=== PATIENT | female | born 2000 | race American Indian/Alaskan Native ===

== ENCOUNTER 2020-12-23 15:39 | Emergency (ER) | payer OTHER, MEDICAID ==
[2020-12-23] MEDS ORDERED: KETOROLAC 30 MG/1 ML INJ IV ONE (17:20)
[2020-12-23] MEDS ORDERED: MORPHINE 4 MG/1 ML INJ IV ONE ×3 (17:20→22:05)
[2020-12-23] MEDS ORDERED: diphenhydrAMINE 50 MG/ML VIAL IV ONE ×2 (17:20→20:40)
[2020-12-23] MEDS ORDERED: ONDANSETRON 4 MG/2 ML INJ IV ONE (17:20)
--- NOTE | 2020-12-23 17:21 | Emergency Department Report ---
ED Chest Pain HPI - General Chief Complaint: Sickle Cell Crisis Stated Complaint: SICKLE CELL PAIN Time Seen by Provider: 12/23/20 17:06 Source: patient Mode of arrival: Ambulatory Limitations: No Limitations - History of Present Illness Initial Comments: 20-year-old female with a past medical history of sickle cell SC presents to the hospital planing of pain related to sickle cell disease for the past 3 to 4 days. Patient complains of constant moderate to severe sharp sternal chest pain that is worse with movement and palpation. She complains of a dry cough. She denies shortness of breath, fever, loss of sense of taste and smell, history of PE or DVT. Last Covid test was negative 2 weeks ago. Patient does express a history of acute chest syndrome. Patient also complains of bilateral leg pain without swelling. Patient takes morphine ER 15 mg and oxycodone 10 mg for pain with last dose prior to arrival. Patient's electrotype molder is affiliated with [facility]. This is patient's first visit here. [place] prescription monitoring site reviewed and patient failed a 1 month supply of morphine ER 15 mg on December 10 and a 15-day supply of oxycodone 10 mg. Prescribing doctor is Michael Gr and she receives regular refills of these medications. Patient does not have a port. Patient states on average she has 2 crises a month requiring her to go to the hospital and is typically seen at [facility]. - Related Data Allergies Allergy/AdvReac Type Severity Reaction Status Date / Time hydromorphone [From Dilaudid] Allergy Hives Verified 12/23/20 15:48 Pork/Porcine Containing Allergy Anaphylaxis Verified 12/23/20 15:48 Products Heart Score - HEART Score History: Slightly suspicious EKG: Normal Age: < 45 Risk factors: No known risk factors Troponin: < normal limit HEART Score: 0 ED Review of Systems ROS: Stated complaint: SICKLE CELL PAIN Other details as noted in HPI Comment: All other systems reviewed and negative Other: General: No acute distress Head: Atraumatic Eyes: normal appearance ENT: Moist mucous membranes Neck: Normal appearance, no midline tenderness Chest: Clear to auscultation bilaterally, reproducible sternal chest wall tender CV: Regular rate and rhythm Abdomen: Soft, normal bowel sounds, nontender, nondistended, no rebound or guarding Back: Normal inspection Extremity: Normal inspection, full range of motion, no calf tenderness or leg edema Neuro: Alert O x 3, no facial asymmetry, speech clear, no gross motor sensory deficit Psych: Appropriate behavior Skin: No rash ED Past Medical Hx - Past Medical History Previous Medical History?: Yes Hx Sickle Cell Disease: Yes - Surgical History Past Surgical History?: No ED Physical Exam - General Limitations: No Limitations - Other Other exam information: General: No acute distress Head: Atraumatic Eyes: normal appearance ENT: Moist mucous membranes Neck: Normal appearance, no midline tenderness Chest: Clear to auscultation bilaterally, reproducible sternal chest wall tenderness CV: Regular rate and rhythm Abdomen: Soft, normal bowel sounds, nontender, nondistended, no rebound or guar ding Back: Normal inspection Extremity: Normal inspection, full range of motion Neuro: Alert O x 3, no facial asymmetry, speech clear, no gross motor sensory deficit Psych: Appropriate behavior Skin: No rash ED Course Vital Signs 12/23/20 12/23/20 12/23/20 15:49 17:45 19:20 Temperature 99.5 F 98.3 F Pulse Rate 118 H 89 Respiratory 16 16 18 Rate Blood Pressure 126/83 Blood Pressure 101/57 [Left] O2 Sat by Pulse 97 96 Oximetry 12/23/20 12/23/20 12/23/20 19:22 19:31 19:45 Temperature Pulse Rate 97 H 80 76 Respiratory 16 18 16 Rate Blood Pressure 101/57 101/57 101/57 Blood Pressure [Left] O2 Sat by Pulse 100 100 97 Oximetry 12/23/20 12/23/20 12/23/20 20:01 20:15 20:21 Temperature Pulse Rate 78 109 H Respiratory 19 22 18 Rate Blood Pressure 101/57 Blood Pressure [Left] O2 Sat by Pulse 97 99 Oximetry 12/23/20 12/23/20 12/23/20 20:31 20:45 21:01 Temperature Pulse Rate 88 77 84 Respiratory 17 15 14 Rate Blood Pressure 104/59 108/67 108/67 Blood Pressure [Left] O2 Sat by Pulse 100 100 Oximetry 12/23/20 12/23/20 21:15 22:55 Temperature Pulse Rate 83 Respiratory 16 18 Rate Blood Pressure 108/67 Blood Pressure [Left] O2 Sat by Pulse 100 Oximetry CONNER score - Conner Score Age > 65: (0) No Aspirin use within the Past 7 Days: (0) No 3 or more CAD Risk Factors: (0) No 2 or more Angina events in past 24 hrs: (0) No Known CAD with more than 50% Stenosis: (0) No Elevated Cardiac Markers: (0) No ST Deviation Greater than 0.5mm: (0) No CONNER Score: 0 ED Medical Decision Making - Lab Data Result diagrams: 12/23/20 17:29 12/23/20 17:29 Lab Results 12/23/20 12/23/20 12/23/20 Range/Units 17:29 17:29 17:29 WBC 8.7 (4.5-11.0) K/mm3 RBC 6.04 H (3.65-5.03) M/mm3 Hgb 13.7 (10.1-14.3) gm/dl Hct 39.1 (30.3-42.9) % MCV 65 L (79-97) fl MCH 23 L (28-32) pg MCHC 35 H (30-34) % RDW 13.8 (13.2-15.2) % Plt Count 229 (140-440) K/mm3 Lymph % (Auto) 34.4 (13.4-35.0) % [place] % (Auto) 5.5 (0.0-7.3) % Eos % (Auto) 0.6 (0.0-4.3) % Baso % (Auto) 0.6 (0.0-1.8) % Lymph # (Auto) 3.0 (1.2-5.4) K/mm3 [place] # (Auto) 0.5 (0.0-0.8) K/mm3 Eos # (Auto) 0.1 (0.0-0.4) K/mm3 Baso # (Auto) 0.1 (0.0-0.1) K/mm3 Seg Neutrophils % 58.9 (40.0-70.0) % Seg Neutrophils # 5.1 (1.8-7.7) K/mm3 Percent Retic 2.77 H (0.78-2.58) % PT 13.9 (12.2-14.9) Sec. INR 1.08 (0.87-1.13) Sodium (137-145) mmol/L Potassium (3.6-5.0) mmol/L Chloride (98-107) mmol/L Carbon Dioxide (22-30) mmol/L Anion Gap mmol/L BUN (7-17) mg/dL Creatinine (0.6-1.2) mg/dL Estimated GFR ml/min BUN/Creatinine Ratio % Glucose (65-100) mg/dL Calcium (8.4-10.2) mg/dL Total Bilirubin (0.1-1.2) mg/dL AST (5-40) units/L ALT (7-56) units/L Alkaline Phosphatase (35-129) units/L Troponin T (0.00-0.029) ng/mL Total Protein (6.3-8.2) g/dL Albumin (3.9-5) g/dL Albumin/Globulin Ratio % HCG, Qual Negative (Negative) 12/23/20 12/23/20 Range/Units 17:29 20:49 WBC (4.5-11.0) K/mm3 RBC (3.65-5.03) M/mm3 Hgb (10.1-14.3) gm/dl Hct (30.3-42.9) % MCV (79-97) fl MCH (28-32) pg MCHC (30-34) % RDW (13.2-15.2) % Plt Count (140-440) K/mm3 Lymph % (Auto) (13.4-35.0) % [place] % (Auto) (0.0-7.3) % Eos % (Auto) (0.0-4.3) % Baso % (Auto) (0.0-1.8) % Lymph # (Auto) (1.2-5.4) K/mm3 [place] # (Auto) (0.0-0.8) K/mm3 Eos # (Auto) (0.0-0.4) K/mm3 Baso # (Auto) (0.0-0.1) K/mm3 Seg Neutrophils % (40.0-70.0) % Seg Neutrophils # (1.8-7.7) K/mm3 Percent Retic (0.78-2.58) % PT (12.2-14.9) Sec. INR (0.87-1.13) Sodium 135 L (137-145) mmol/L Potassium 4.1 (3.6-5.0) mmol/L Chloride 102.6 (98-107) mmol/L Carbon Dioxide 24 (22-30) mmol/L Anion Gap 15 mmol/L BUN 9 (7-17) mg/dL Creatinine 0.6 (0.6-1.2) mg/dL Estimated GFR > 60 ml/min BUN/Creatinine Ratio 15 % Glucose 80 (65-100) mg/dL Calcium 9.4 (8.4-10.2) mg/dL Total Bilirubin 0.70 (0.1-1.2) mg/dL AST 64 H (5-40) units/L ALT 28 (7-56) units/L Alkaline Phosphatase 47 (35-129) units/L Troponin T < 0.010 < 0.010 (0.00-0.029) ng/mL Total Protein 8.2 (6.3-8.2) g/dL Albumin 4.6 (3.9-5) g/dL Albumin/Globulin Ratio 1.3 % HCG, Qual (Negative) - EKG Data -: EKG Interpreted by Ne EKG shows normal: sinus rhythm, ST-T waves (no stemi) Rate: tachycardia (102) - EKG Data When compared to previous EKG there are: previous EKG unavailable - Radiology Data Radiology results: report reviewed CHEST 1 VIEW INDICATION / CLINICAL INFORMATION: Chest Pain. COMPARISON: None available. FINDINGS: SUPPORT DEVICES: None. HEART / MEDIASTINUM: No significant abnormality. LUNGS / PLEURA: No significant pulmonary or pleural abnormality. No pneumothorax. ADDITIONAL FINDINGS: No significant additional findings. IMPRESSION: No acute pulmonary or pleural abnormality - Medical Decision Making 20-year-old female with a past medical history of sickle cell SC presents to the hospital complain of pain secondary to crisis since this weekend. Patient is chronically on high-dose narcotics and receives monthly prescriptions from her [facility] physicians. She also states she has to go to the ER twice a month for sickle cell crisis despite chronically being placed on these high-dose me dications. At time of ER evaluation she has reproducible sternal chest pain without hypoxia, infiltrate, or infectious symptoms. She also lacks anemia or significantly elevated reticulocyte count or bilirubin. Patient has a EKG without ischemic findings and troponin negative x2. Patient received 3 doses of morphine 10 mg IV in addition to Toradol, Benadryl, and Zofran. Patient will be discharged to continue her current oxycodone and morphine ER and to follow-up with her [facility] electrotype molder. Initial tachycardia improved with IV hydration and pain medication Critical Care Time: No Critical care attestation.: If time is entered above; I have spent that time in minutes in the direct care of this critically ill patient, excluding procedure time. ED Disposition Clinical Impression: Sickle cell crisis, Chronic narcotic use Disposition: - TO HOME OR SELFCARE Is pt being admited?: No Does the pt Need Aspirin: No Condition: Stable Instructions: Hemolytic Anemia Additional Instructions: Continue your current medication as prescribed. Follow-up with your doctor or doctor/clinic provided. Return if symptoms worsen as indicated by your filipe chow instructions. Referrals: Your, electrotype molder [Other] - 2-3 Days Time of Disposition: 23:48
[2020-12-23 17:46] LABS: Basophils # (Auto) 0.1 K/mm3 (0.0-0.1); Basophils % (Auto) 0.6 % (0.0-1.8); Eosinophils # (Auto) 0.1 K/mm3 (0.0-0.4); Eosinophils % (Auto) 0.6 % (0.0-4.3); Hematocrit 39.1 % (30.3-42.9); Hemoglobin 13.7 gm/dl (10.1-14.3); Lymphocytes % (Auto) 34.4 % (13.4-35.0); Mean Corpuscular HGB Conc 35 % (30-34); Monocytes # (Auto) 0.5 K/mm3 (0.0-0.8); Monocytes % (Auto) 5.5 % (0.0-7.3); Platelet Count 229 K/mm3 (140-440); Red Blood Count 6.04 M/mm3 (3.65-5.03); Red Cell Distribution Width 13.8 % (13.2-15.2)
[2020-12-23 17:47] LABS: Mean Corpuscular Volume 65 fl (79-97)
[2020-12-23 17:57] LABS: INR 1.08 (0.87-1.13)
[2020-12-23] MEDS ORDERED: D5W/0.2% NACL 1,000 ML IV SCH (18:00)
[2020-12-23 18:04] LABS: Alanine Aminotransferase 28 units/L (7-56); Albumin 4.6 g/dL (3.9-5); Blood Urea Nitrogen 9 mg/dL (7-17); Calcium 9.4 mg/dL (8.4-10.2); Hemolysis Index 235
[2020-12-23 18:07] LABS: BUN/Creatinine Ratio 15
--- NOTE | 2020-12-23 19:19 | XRay Report ---
CHEST 1 VIEW INDICATION / CLINICAL INFORMATION: Chest Pain. COMPARISON: None available. FINDINGS: SUPPORT DEVICES: None. HEART / MEDIASTINUM: No significant abnormality. LUNGS / PLEURA: No significant pulmonary or pleural abnormality. No pneumothorax. ADDITIONAL FINDINGS: No significant additional findings. IMPRESSION: No acute pulmonary or pleural abnormality Signer Name: Harrison Jay MD FACR Signed: 12/23/2020 7:14 PM Workstation Name: [id number]
[2020-12-24 00:03] VITALS: BP 104/65
== END 2020-12-24 00:05 | disposition home or self-care (01) ==
LOC: ED 15:39
DX: D57.00 Hb-SS disease with crisis, unspecified (principal); F15.90 Other stimulant use, unspecified, uncomplicated; Z91.018 Allergy to other foods; Z88.8 Allergy status to other drugs, medicaments and biological substances
CPT/HCPCS: 36415; 71045; 80053; 84484; 84703; 85025; 85045; 85610; 93005; 96361; 96374; 96375; 96376; 99284; J1200; J1885; J2270; J2405

== ENCOUNTER 2021-09-18 11:09 | Emergency (ER) | payer MEDICAID, OTHER ==
[2021-09-18] MEDS ORDERED: ONDANSETRON 4 MG/2 ML INJ IV ONE (11:59)
[2021-09-18] MEDS ORDERED: diphenhydrAMINE 25 MG CAP PO STA (11:59)
[2021-09-18] MEDS ORDERED: MORPHINE 4 MG/1 ML INJ IV ONE ×3 (11:59→14:58)
--- NOTE | 2021-09-18 12:00 | Emergency Department Report ---
<TANVI PELAEZ - Last Filed: 09/18/21 15:24> ED General Adult HPI - General Chief complaint: Sickle Cell Crisis Stated complaint: SICKLE CELL PAIN Time Seen by Provider: 09/18/21 11:49 Source: patient, RN notes reviewed, old records reviewed Mode of arrival: Wheelchair Limitations: No Limitations - History of Present Illness Initial comments: During the history and physical examination, I am chaperoned by nurse Katie Ibarra The patient is a 21-year-old female, who reports a history of sickle cell disease, who typically follows at [facility], who is chronically maintained on morphine, who presents to the ER with a complaint of sickle cell pain. She has back pain, abdominal pain, and leg pain. Triggers include cold weather, change of seasons and rain. The patient denies dysuria and the possibility of . The patient denies headache, neck pain, chest pain, vomiting, dysuria, and reports this feels similar to her prior episodes of sickle cell pain crisis. She reports that while she was hospitalized as a child, she received morphine and hydromorphone, and subsequently had respiratory depression without anaphylactic or anaphylactoid symptoms, and thus was informed to exercise caution when receiving morphine and/or hydromorphone. However, she reports she can tolerate morphine. In the emergency room, she received 4 mg of morphine, and endorsed improvement in symptoms. She currently rates her pain as an 8. -: Gradual Location: back, abdomen, left, right, lower extremity Severity scale (0 -10): 10 Quality: aching Consistency: constant Improves with: medication, rest Worsens with: movement - Related Data Home Medications Medication Instructions Recorded Confirmed Last Taken Cholecalciferol Vit D3 [Vitamin D3 1,000 1000units PO 1XW 09/18/21 09/18/21 09/11/21 08:00 1,000 UNIT TAB] Fluticasone [Flonase] 1 spray NS QDAY 09/18/21 09/18/21 09/17/21 08:00 Folic Acid [Folvite] 1 mg PO QDAY 09/18/21 09/18/21 09/18/21 08:00 Gabapentin [Neurontin] 600 mg PO TID 09/18/21 09/18/21 09/17/21 21:00 Glutamine [Endari] 10 g PO BID 09/18/21 09/18/21 09/17/21 21:00 Loratadine [Allergy Relief] 10 mg PO DAILY 09/18/21 09/18/21 09/17/21 08:00 Morphine Sulfate [Morphine Sulfate 15 mg PO BID 09/18/21 09/18/21 09/17/21 21:00 ER] Allergies Allergy/AdvReac Type Severity Reaction Status Date / Time hydromorphone [From Dilaudid] Allergy Hives Verified 09/18/21 11:36 Pork/Porcine Containing Allergy Anaphylaxis Verified 09/18/21 11:36 Products ED Review of Systems Constitutional: denies: fever Eyes: denies: eye discharge ENT: other (Denies sore throat). denies: epistaxis Respiratory: denies: cough Cardiovascular: denies: chest pain Gastrointestinal: abdominal pain. denies: nausea, vomiting Genitourinary: denies: dysuria Musculoskeletal: back pain, arthralgia, myalgia Neurological: denies: weakness Hematological/Lymphatic: denies: easy bleeding ED Past Medical Hx - Past Medical History Previous Medical History?: Yes Hx Sickle Cell Disease: Yes - Surgical History Past Surgical History?: No - Social History Smoking Status: Never Smoker Substance Use Type: None - Medications Home Medications: Home Medications Medication Instructions Recorded Confirmed Last Taken Type Cholecalciferol Vit D3 [Vitamin D3 1,000 1000units PO 1XW 09/18/21 09/18/21 09/11/21 08:00 History 1,000 UNIT TAB] Fluticasone [Flonase] 1 spray NS QDAY 09/18/21 09/18/21 09/17/21 08:00 History Folic Acid [Folvite] 1 mg PO QDAY 09/18/21 09/18/21 09/18/21 08:00 History Gabapentin [Neurontin] 600 mg PO TID 09/18/21 09/18/21 09/17/21 21:00 History Glutamine [Endari] 10 g PO BID 09/18/21 09/18/21 09/17/21 21:00 History Loratadine [Allergy Relief] 10 mg PO DAILY 09/18/21 09/18/21 09/17/21 08:00 History Morphine Sulfate [Morphine Sulfate 15 mg PO BID 09/18/21 09/18/21 09/17/21 21:00 History ER] ED Physical Exam - General Limitations: No Limitations General appearance: alert, in no apparent distress - Head Head exam: Present: atraumatic, normocephalic - Eye Eye exam: Present: normal appearance, EOMI. Absent: nystagmus - ENT ENT exam: Present: normal exam, normal orophraynx, mucous membranes moist, nor mal external ear exam - Neck Neck exam: Present: normal inspection, full ROM. Absent: tenderness, meningismus - Respiratory Respiratory exam: Present: normal lung sounds bilaterally. Absent: respiratory distress, wheezes, rales, rhonchi, stridor, decreased breath sounds - Cardiovascular Cardiovascular Exam: Present: regular rate, normal rhythm, normal heart sounds. Absent: bradycardia, tachycardia, irregular rhythm, systolic murmur, diastolic murmur, rubs, gallop - GI/Abdominal GI/Abdominal exam: Present: soft, normal bowel sounds. Absent: distended, tenderness, guarding, rebound, rigid, pulsatile mass - Extremities Exam Extremities exam: Present: normal inspection, full ROM, tenderness (Lower extremity tenderness noted), other (2+ pulses noted in the bilateral upper extremities. There is no upper extremity tenderness. The pelvis is stable. The muscular compartments are soft). Absent: calf tenderness - Back Exam Back exam: Present: normal inspection, tenderness, paraspinal tenderness, vertebral tenderness - Neurological Exam Neurological exam: Present: alert, oriented X3, other (No facial droop. Tongue midline. Extraocular movements intact bilaterally. Facial sensation intact to light touch in V1, V2, V3 distribution bilaterally. 5 and a 5 strength in 4 extremities. Sensation intact to light touch in 4 extremities.). Absent: motor sensory deficit - Psychiatric Psychiatric exam: Present: anxious - Skin Skin exam: Present: warm, dry, intact, normal color. Absent: rash ED Course - Reevaluation(s) Reevaluation #1: 09/18/21 13:51 Differential diagnosis, including but not limited to: Sickle cell crisis, urinary tract infection, chronic pain, chronic narcotic dependence Assessment and plan: 21-year-old female, who was afebrile, with reassuring vital signs, with a complaint of recurrent lower extremity pain, lower abdominal pain and back pain. Patient has 5/5 strength in 4 extremities, with sensation intact to light touch, no urinary symptoms, this is likely secondary to her underlying sickle cell pain crisis. With distracted examination, abdomen is soft and benign, without rebound, guarding or peritoneal signs. Laboratory studies n onactionable, urinalysis pending, second dose of morphine ordered. Of note, when I go back into the room to reassess the patient, she is on a cellular phone, speaking in full sentences, and not in any acute distress 09/18/21 15:04 Patient reassessed multiple times. She is not in any acute distress. Third dose of morphine ordered. She states that her pain is improved. Urinalysis pending. Plan for discharge once urinalysis has resulted 09/18/21 15:24 Care be transferred to the oncoming ER physician, to follow-up on urinalysis. Discharged with antibiotics if positive. Otherwise, she she may continue her outpatient narcotic prescriptions from her primary care doctor/reeling operator/specialist team at [facility]. ED Medical Decision Making - Lab Data Result diagrams: 09/18/21 12:10 09/18/21 12:10 Vital Signs 09/18/21 09/18/21 09/18/21 11:13 11:31 11:36 Temperature 98.1 F 98.4 F Pulse Rate 102 H 81 76 Respiratory 20 10 L 14 Rate Blood Pressure 123/80 123/80 Blood Pressure 127/88 [Right] O2 Sat by Pulse 99 98 100 Oximetry 09/18/21 09/18/21 09/18/21 11:46 12:00 12:16 Temperature Pulse Rate 78 82 Respiratory 11 L 12 Rate Blood Pressure 123/80 119/84 Blood Pressure [Right] O2 Sat by Pulse 100 100 100 Oximetry 09/18/21 12:30 Temperature Pulse Rate 73 Respiratory 10 L Rate Blood Pressure 119/84 Blood Pressure [Right] O2 Sat by Pulse 100 Oximetry Lab Results 09/18/21 09/18/21 09/18/21 Range/Units 12:10 12:10 12:10 WBC 6.8 (4.5-11.0) K/mm3 RBC 5.52 H (3.65-5.03) M/mm3 Hgb 11.8 (10.1-14.3) gm/dl Hct 35.8 (30.3-42.9) % MCV 65 L (79-97) fl MCH 21 L (28-32) pg MCHC 33 (30-34) % RDW 13.6 (13.2-15.2) % Plt Count 238 (140-440) K/mm3 Percent Retic 3.23 H (0.78-2.58) % Sodium 140 (137-145) mmol/L Potassium 4.2 (3.6-5.0) mmol/L Chloride 105.7 (98-107) mmol/L Carbon Dioxide 22 (22-30) mmol/L Anion Gap 17 mmol/L BUN 6 L (7-17) mg/dL Creatinine 0.6 (0.6-1.2) mg/dL Estimated GFR > 60 ml/min BUN/Creatinine Ratio 10 % Glucose 83 (65-100) mg/dL Calcium 9.0 (8.4-10.2) mg/dL Total Bilirubin 0.60 (0.1-1.2) mg/dL Direct Bilirubin < 0.2 (0-0.2) mg/dL Indirect Bilirubin 0.4 mg/dL AST 12 (5-40) units/L ALT 9 (7-56) units/L Alkaline Phosphatase 55 (35-129) units/L Total Protein 7.0 (6.3-8.2) g/dL Albumin 4.3 (3.9-5) g/dL Albumin/Globulin Ratio 1.6 % HCG, Quant < 2 (0-4) mIU/mL ED Disposition Clinical Impression: Sickle cell pain crisis Disposition: 01 HOME / SELF CARE / HOMELESS Is pt being admited?: No Does the pt Need Aspirin: No Condition: Good Additional Instructions: Please continue current outpatient medications. Please follow-up with your outpatient reeling operator or primary care doctor in the next 5 to 7 days for repeat checkup and evaluation. Please continue current outpatient prescribed morphine for sickle cell pain. Please return to the emergency room right away with new pain, worsened pain, migration of pain, projectile vomiting, change in mental status, confusion, inability to tolerate liquid feeds, new, worsened or different symptoms not present on the initial emergency room evaluation Dr. Martínez is a local hematology occupational medicine specialist. [facility] is a local medical clinic. Referrals: [facility] [Provider Group] - 3-5 Days MARINE MARTÍNEZ MD [Staff Physician] - 3-5 Days Forms: Work/School Release Form(ED) <JERILYN RAY - Last Filed: 09/20/21 10:55> ED Review of Systems ROS: Stated complaint: SICKLE CELL PAIN Other details as noted in HPI ED Course Vital Signs 12/10/21 12/10/21 12/10/21 11:13 11:31 11:36 Temperature 98.1 F 98.4 F Pulse Rate 102 H 81 76 Respiratory 20 10 L 14 Rate Blood Pressure 123/80 123/80 Blood Pressure 127/88 [Right] O2 Sat by Pulse 99 98 100 Oximetry 09/18/21 09/18/21 09/18/21 11:46 12:00 12:16 Temperature Pulse Rate 78 82 Respiratory 11 L 12 Rate Blood Pressure 123/80 119/84 Blood Pressure [Right] O2 Sat by Pulse 100 100 100 Oximetry 09/18/21 09/18/21 09/18/21 12:30 13:00 13:30 Temperature Pulse Rate 73 70 84 Respiratory 10 L 10 L 11 L Rate Blood Pressure 119/84 119/84 119/84 Blood Pressure [Right] O2 Sat by Pulse 100 99 98 Oximetry 09/18/21 09/18/21 09/18/21 14:00 14:30 15:15 Temperature Pulse Rate 78 82 Respiratory 13 10 L 14 Rate Blood Pressure 116/84 116/84 Blood Pressure [Right] O2 Sat by Pulse 100 100 Oximetry 09/18/21 17:34 Temperature 98.7 F Pulse Rate 94 H Respiratory 14 Rate Blood Pressure Blood Pressure 113/73 [Right] O2 Sat by Pulse 100 Oximetry - Reevaluation(s) Reevaluation #2: 09/18/21 17:14 UA reveals no signs of infection. Patient reports feeling better. She will be discharged home with instructions to follow-up closely. Patient expressed understanding agreement with this plan of care. ED Medical Decision Making - Lab Data Result diagrams: 09/18/21 12:10 09/18/21 12:10 Critical care attestation.: If time is entered above; I have spent that time in minutes in the direct care of this critically ill patient, excluding procedure time. ED Disposition Is pt being admited?: No
[2021-09-18 12:38] LABS: Hematocrit 35.8 % (30.3-42.9); Hemoglobin 11.8 gm/dl (10.1-14.3); Mean Corpuscular HGB Conc 33 % (30-34); Platelet Count 238 K/mm3 (140-440); Red Blood Count 5.52 M/mm3 (3.65-5.03); Red Cell Distribution Width 13.6 % (13.2-15.2)
[2021-09-18 12:56] LABS: Alanine Aminotransferase 9 units/L (7-56); Albumin 4.3 g/dL (3.9-5); Blood Urea Nitrogen 6 mg/dL (7-17); Hemolysis Index 2
[2021-09-18 12:58] LABS: BUN/Creatinine Ratio 10; Bilirubin,Direct < 0.2 mg/dL (0-0.2)
[2021-09-18 13:00] LABS: Mean Corpuscular Volume 65 fl (79-97)
[2021-09-18 16:10] LABS: Bilirubin,Urine NEG (Negative); Blood,Urine MOD (Negative); Color,Urine Yellow (Yellow); Mucus,Urine FEW /HPF; Protein,Urine <15 mg/dL mg/dL (Negative); Urobilinogen,Urine < 2.0 mg/dL (<2.0)
[2021-09-18 17:14] LABS: Total Cells Counted 100
[2021-09-18 17:15] LABS: Hypochromasia 2+; Schistocytes Rare
[2021-09-18 17:16] LABS: Platelet Estimate Consistent w Auto; Target Cells 2+
[2021-09-18 17:36] VITALS: BP 113/73
== END 2021-09-18 17:49 | disposition home or self-care (01) ==
LOC: ED 11:09
DX: D57.219 Sickle-cell/Hb-C disease with crisis, unspecified (principal); Z91.018 Allergy to other foods
CPT/HCPCS: 36415; 80048; 80076; 81001; 84702; 85007; 85025; 85045; 96374; 96375; 96376; 99284; J2270; J2405

== ENCOUNTER 2021-09-20 21:40 | Emergency (ER) | payer MEDICAID ==
[2021-09-20] MEDS ORDERED: MORPHINE 4 MG/1 ML INJ IV ONE (22:56)
[2021-09-20] MEDS ORDERED: ONDANSETRON 4 MG/2 ML INJ IV ONE (22:56)
[2021-09-20] MEDS ORDERED: SODIUM CHLORIDE 0.9% 1000 ML 1,000 ML IV ONE (22:56)
--- NOTE | 2021-09-20 23:04 | Emergency Department Report ---
HPI - General Chief Complaint: Sickle Cell Crisis Time Seen by Provider: 09/20/21 22:53 - HPI HPI: 21-year-old -[place]ux[place] female presents to the emergency department with a 2-day history of generalized chest discomfort, back pain and bilateral lower extremity pain that she says is a sickle cell pain crisis. She says that this is consistent with previous sickle cell pain crisis. Despite the generalized chest discomfort, she denies any shortness of breath, fever. The patient takes folic acid and is on MS Contin 15 mg and OxyContin 10 mg for chronic pain control. 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 The patient was seen here 2 days ago for similar symptoms. No recent travel or sick contacts at home. ED Past Medical Hx - Past Medical History Hx Sickle Cell Disease: Yes - Surgical History Past Surgical History?: No - Social History Smoking Status: Never Smoker Substance Use Type: None - Medications Home Medications: Home Medications Medication Instructions Recorded Confirmed Last Taken Type Cholecalciferol Vit D3 [Vitamin D3 1,000 1000units PO 1XW 09/18/21 09/18/21 09/11/21 08:00 History 1,000 UNIT TAB] Fluticasone [Flonase] 1 spray NS QDAY 09/18/21 09/18/21 09/17/21 08:00 History Folic Acid [Folvite] 1 mg PO QDAY 09/18/21 09/18/21 09/18/21 08:00 History Gabapentin [Neurontin] 600 mg PO TID 09/18/21 09/18/21 09/17/21 21:00 History Glutamine [Endari] 10 g PO BID 09/18/21 09/18/21 09/17/21 21:00 History Loratadine [Allergy Relief] 10 mg PO DAILY 09/18/21 09/18/21 09/17/21 08:00 History Morphine Sulfate [Morphine Sulfate 15 mg PO BID 09/18/21 09/18/21 09/17/21 21:00 History ER] ED Review of Systems ROS: Stated complaint: SICKLE PAIN CRISIS Other details as noted in HPI Comment: All other systems reviewed and negative Constitutional: denies: chills, fever Eyes: denies: eye pain, vision change ENT: denies: ear pain, throat pain Respiratory: denies: cough, shortness of breath Cardiovascular: chest pain. denies: palpitations Gastrointestinal: denies: abdominal pain, vomiting Genitourinary: denies: dysuria, discharge Musculoskeletal: back pain, myalgia. denies: joint swelling Skin: denies: rash, lesions Neurological: denies: headache, numbness, paresthesias Physical Exam - Physical Exam Vital Signs: Vital Signs 09/20/21 21:43 Temperature 98.6 F Pulse Rate 91 H Respiratory 17 Rate Blood Pressure 118/81 [Right] O2 Sat by Pulse 99 Oximetry Physical Exam: GENERAL: The patient is well-developed well-nourished. HENT: Normocephalic. Atraumatic. Patient has moist mucous membranes. EYES: Extraocular motions are intact. NECK: Supple. Trachea is midline. CHEST/LUNGS: Clear to auscultation. There is no respiratory distress noted. Reproducible generalized chest wall tenderness to palpation without crepitus or deformity. HEART/CARDIOVASCULAR: Regular. There is no tachycardia. There is no murmur. ABDOMEN: Abdomen is soft, nontender. Patient has normal bowel sounds. SKIN: Skin is warm and dry. NEURO: The patient is awake, alert, and oriented. The patient is cooperative. The patient has no focal neurologic deficits. Normal speech. MUSCULOSKELETAL: There is tenderness to palpation along the bilateral lower extremities but no obvious deformity. There is no limitation range of motion. BACK: There is both midline and bilateral paraspinal thoracic and lumbar tenderness to palpation. ED Course Vital Signs 09/20/21 21:43 Temperature 98.6 F Pulse Rate 91 H Respiratory 17 Rate Blood Pressure 118/81 [Right] O2 Sat by Pulse 99 Oximetry ED Medical Decision Making - Lab Data Result diagrams: 09/20/21 23:09 09/20/21 23:09 Lab Results 09/20/21 09/20/21 Range/Units 23:09 23:09 WBC 6.8 (4.5-11.0) K/mm3 RBC 5.46 H (3.65-5.03) M/mm3 Hgb 11.6 (10.1-14.3) gm/dl Hct 34.9 (30.3-42.9) % MCV 64 L (79-97) fl MCH 21 L (28-32) pg MCHC 33 (30-34) % RDW 13.6 (13.2-15.2) % Plt Count 234 (140-440) K/mm3 Lymph % (Auto) 33.6 (13.4-35.0) % Ida % (Auto) 5.4 (0.0-7.3) % Eos % (Auto) 0.3 (0.0-4.3) % Baso % (Auto) 0.5 (0.0-1.8) % Lymph # (Auto) 2.3 (1.2-5.4) K/mm3 Ida # (Auto) 0.4 (0.0-0.8) K/mm3 Eos # (Auto) 0.0 (0.0-0.4) K/mm3 Baso # (Auto) 0.0 (0.0-0.1) K/mm3 Seg Neutrophils % 60.2 (40.0-70.0) % Seg Neutrophils # 4.1 (1.8-7.7) K/mm3 Percent Retic 3.10 H (0.78-2.58) % Sodium 143 (137-145) mmol/L Potassium 3.9 (3.6-5.0) mmol/L Chloride 105.7 (98-107) mmol/L Carbon Dioxide 25 (22-30) mmol/L Anion Gap 16 mmol/L BUN 8 (7-17) mg/dL Creatinine 0.6 (0.6-1.2) mg/dL Estimated GFR > 60 ml/min BUN/Creatinine Ratio 13 % Glucose 96 (65-100) mg/dL Calcium 9.5 (8.4-10.2) mg/dL Total Bilirubin 0.90 (0.1-1.2) mg/dL AST 14 (5-40) units/L ALT 8 (7-56) units/L Alkaline Phosphatase 55 (35-129) units/L Total Protein 8.0 (6.3-8.2) g/dL Albumin 4.6 (3.9-5) g/dL Albumin/Globulin Ratio 1.4 % - Radiology Data Radiology results: image reviewed interpreted by me: Chest x-ray does not show any acute process. There are no pleural effusions, obvious pneumonia and there is no pneumothorax. No widened mediastinum. - Medical Decision Making This patient presents with a 1 to 2-day history of generalized chest pain, back pain and bilateral lower extremity pain that she says is a sickle cell pain crisis. Heart and lungs are normal auscultation and the patient does not appear in any respiratory or acute distress. Chest x-ray does not show any pneumonia, pleural effusions, pneumothorax, widened mediastinum, or or any other acute process. Vital signs reassuring including being afebrile. The patient does not appear to have any acute chest crisis. The rest the labs are also unremarkable including CBC, metabolic panel, and reticulocyte count is 3. Patient was given some IV fluid resuscitation and 2 doses of IV analgesia. Upon reevaluation she is feeling improved. For all these reason she appears safe for discharge home at this time. She has been given outpatient referral for hematology and instructed follow-up with her PCP. Critical Care Time: No Critical care attestation.: If time is entered above; I have spent that time in minutes in the direct care of this critically ill patient, excluding procedure time. ED Disposition Clinical Impression: Sickle cell pain crisis Disposition: 01 HOME / SELF CARE / HOMELESS Is pt being admited?: No Condition: Stable Additional Instructions: Please follow-up with a primary care physician and operational trainer in the next few days. Return to the emergency department with any worsening of your symptoms, new or concerning symptoms not addressed during this current emergency department visit, or with any acute distress. Referrals: PRIMARY CARE, [Primary Care Provider] - 3-5 Days DERRICK WOLFE MD [Staff Physician] - 3-5 Days HILLARY TURNER DO [Staff Physician] - 3-5 Days Time of Disposition: 03:14
--- NOTE | 2021-09-20 23:41 | XRay Report ---
XR chest routine 2V INDICATION / CLINICAL INFORMATION: CP. COMPARISON: 12/23/2020 FINDINGS: SUPPORT DEVICES: None. HEART /PULMONARY VASCULATURE: No significant abnormality. LUNGS / PLEURA: No acute pulmonary or pleural abnormality. No pneumothorax. ADDITIONAL FINDINGS: No significant additional findings. IMPRESSION: 1. No acute findings. Signer Name: Jean Pierre Andrews MD Signed: 09/20/2021 11:37 PM Workstation Name: [email or web address]
[2021-09-20 23:50] LABS: Alanine Aminotransferase 8 units/L (7-56); Albumin 4.6 g/dL (3.9-5); Blood Urea Nitrogen 8 mg/dL (7-17); Calcium 9.5 mg/dL (8.4-10.2); Hemolysis Index 5
[2021-09-21] LABS: BUN/Creatinine Ratio 13
[2021-09-21 00:04] LABS: Basophils % (Auto) 0.5 % (0.0-1.8); Eosinophils % (Auto) 0.3 % (0.0-4.3); Hematocrit 34.9 % (30.3-42.9); Hemoglobin 11.6 gm/dl (10.1-14.3); Lymphocytes # (Auto) 2.3 K/mm3 (1.2-5.4); Lymphocytes % (Auto) 33.6 % (13.4-35.0); Mean Corpuscular HGB Conc 33 % (30-34); Monocytes # (Auto) 0.4 K/mm3 (0.0-0.8); Monocytes % (Auto) 5.4 % (0.0-7.3); Platelet Count 234 K/mm3 (140-440); Red Blood Count 5.46 M/mm3 (3.65-5.03); Red Cell Distribution Width 13.6 % (13.2-15.2)
[2021-09-21 01:31] LABS: Mean Corpuscular Volume 64 fl (79-97)
[2021-09-21] MEDS ORDERED: MORPHINE 4 MG/1 ML INJ IV ONE (02:06)
[2021-09-21 07:05] VITALS: BP 120/60
== END 2021-09-21 06:19 | disposition home or self-care (01) ==
LOC: ED 21:40
DX: D57.219 Sickle-cell/Hb-C disease with crisis, unspecified (principal)
CPT/HCPCS: 36415; 71046; 80053; 85025; 85045; 96361; 96374; 96375; 96376; 99284; J2270; J2405; J7030; Q0162

== ENCOUNTER 2021-11-13 07:15 | Emergency (ER) | payer MEDICAID ==
[2021-11-13] MEDS ORDERED: SODIUM CHLORIDE 0.9% 1000 ML 1,000 ML IV ONE (07:39)
[2021-11-13] MEDS ORDERED: ONDANSETRON 4 MG/2 ML INJ IV ONE (07:39)
[2021-11-13] MEDS ORDERED: MORPHINE 4 MG/1 ML INJ IV ONE (07:39)
--- NOTE | 2021-11-13 07:40 | Emergency Department Report ---
ED General Adult HPI - General Chief complaint: Sickle Cell Crisis Stated complaint: Sickle Cell pain x 7 days, CP, abd pain Time Seen by Provider: 11/13/21 07:26 Source: patient Mode of arrival: Ambulatory Limitations: No Limitations - History of Present Illness Initial comments: 21-year-old -[place] female with a past medical history of sickle cell disease and splenomegaly presents to the ER today with complaints of chest pain and left upper quadrant abdominal pain. Patient states that her symptoms started since November 05, 2021. She states that the pain in her left upper chest is sharp and achy and seems to be worse when she moves her body and when she exerts herself and when she takes a deep breath she feels a pressure pain in her upper back. She states that she usually gets pain in her chest and upper abdomen during the wintertime with her sickle cell. She states that since about November 10 she has been having exertional shortness of breath. She states that she is also had a productive cough since November 05 and she is also had nausea and vomiting since November 05. She states that she did go to the ER at [facility] on May 07. She states that they did do chest x-ray, IV fluids and labs and she was discharged home. She was not prescribed anything for nausea or vomiting. She states that she feels her symptoms are just getting worse. 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 She states that she typically takes oxycodone and morphine ER for her pain. She states that she is out of the oxycodone. Patient denies any history of heart disease. She denies any history of PE or DVT in the past. She is on Depo. She denies any recent travel. She has been vaccinated against COVID-19. She has not had a COVID-19 test since she has been sick. She denies illicit drug use or alcohol abuse. Complaint: Sickle cell/Chest pain/Abd pain -: days(s) (since 11/05/2021) Location: chest, abdomen Radiation: non-radiation Severity scale (0 -10): 8 - Related Data Home Medications Medication Instructions Recorded Confirmed Last Taken Cholecalciferol Vit D3 [Vitamin D3 1,000 1000units PO 1XW 12/07/3009/18/21 09/11/21 08:00 1,000 UNIT TAB] Fluticasone [Flonase] 1 spray NS QDAY 09/18/21 09/18/21 09/17/21 08:00 Folic Acid [Folvite] 1 mg PO QDAY 09/18/21 09/18/21 09/18/21 08:00 Gabapentin [Neurontin] 600 mg PO TID 09/18/21 09/18/21 09/17/21 21:00 Glutamine [Endari] 10 g PO BID 09/18/21 09/18/21 09/17/21 21:00 Loratadine [Allergy Relief] 10 mg PO DAILY 09/18/21 09/18/21 09/17/21 08:00 Morphine Sulfate [Morphine Sulfate 15 mg PO BID 09/18/21 09/18/21 09/17/21 21:00 ER] Previous Rx's Medication Instructions Recorded Last Taken Type Promethazine [Phenergan] 25 mg PO Q6HR PRN #15 tab 11/13/21 Unknown Rx Allergies Allergy/AdvReac Type Severity Reaction Status Date / Time ceftriaxone [From Rocephin] Allergy Swelling Verified 09/20/21 21:43 Pork/Porcine Containing Allergy Anaphylaxis Verified 09/18/21 11:36 Products ED Review of Systems ROS: Stated complaint: Sickle Cell pain x 7 days, CP, abd pain Other details as noted in HPI Comment: All other systems reviewed and negative Constitutional: denies: chills, fever Respiratory: cough, shortness of breath. denies: SOB with exertion, SOB at rest, wheezing Cardiovascular: chest pain Gastrointestinal: abdominal pain, nausea, vomiting. denies: diarrhea, constipation, hematemesis, melena, hematochezia Genitourinary: denies: urgency, dysuria, discharge Musculoskeletal: back pain. denies: joint swelling, arthralgia Skin: denies: rash, lesions, change in color, change in hair/nails, pruritus Neurological: denies: headache, weakness, numbness, paresthesias, confusion, abnormal gait, vertigo Psychiatric: denies: anxiety, depression, auditory hallucinations, visual hallucinations, homicidal thoughts, suicidal thoughts Hematological/Lymphatic: denies: easy bleeding, easy bruising, swollen glands ED Past Medical Hx - Past Medical History Hx Sickle Cell Disease: Yes - Social History Smoking Status: Never Smoker Substance Use Type: None - Medications Home Medications: Home Medications Medication Instructions Recorded Confirmed Last Taken Type Cholecalciferol Vit D3 [Vitamin D3 1,000 1000units PO 1XW 09/18/21 09/18/21 09/11/21 08:00 History 1,000 UNIT TAB] Fluticasone [Flonase] 1 spray NS QDAY 09/18/21 09/18/21 09/17/21 08:00 History Folic Acid [Folvite] 1 mg PO QDAY 09/18/21 09/18/21 09/18/21 08:00 History Gabapentin [Neurontin] 600 mg PO TID 09/18/21 09/18/21 09/17/21 21:00 History Glutamine [Endari] 10 g PO BID 09/18/21 09/18/21 09/17/21 21:00 History Loratadine [Allergy Relief] 10 mg PO DAILY 09/18/21 09/18/21 09/17/21 08:00 History Morphine Sulfate [Morphine Sulfate 15 mg PO BID 09/18/21 09/18/21 09/17/21 21:00 History ER] Promethazine [Phenergan] 25 mg PO Q6HR PRN #15 tab 11/13/21 Unknown Rx ED Physical Exam - General Limitations: No Limitations General appearance: alert, in no apparent distress - Head Head exam: Present: atraumatic, normocephalic, normal inspection - Eye Eye exam: Present: normal appearance, PERRL, EOMI Pupils: Present: normal accommodation - Neck Neck exam: Present: normal inspection, full ROM. Absent: meningismus - Respiratory Respiratory exam: Present: normal lung sounds bilaterally. Absent: respiratory distress, wheezes, rales, rhonchi - Cardiovascular Cardiovascular Exam: Present: normal rhythm, tachycardia, normal heart sounds - GI/Abdominal GI/Abdominal exam: Present: soft, tenderness (Mild epigastric ttp without guarding or rebound ). Absent: distended - Extremities Exam Extremities exam: Present: normal inspection, full ROM. Absent: tenderness, pedal edema, calf tenderness - Back Exam Back exam: Present: full ROM - Neurological Exam Neurological exam: Present: alert, oriented X3, CN II-XII intact, normal gait - Psychiatric Psychiatric exam: Present: normal affect, normal mood - Skin Skin exam: Present: intact ED Course Vital Signs 11/13/21 11/13/21 11/13/21 07:19 08:33 08:45 Temperature 98.7 F Pulse Rate 118 H 99 H 94 H Respiratory 18 27 H Rate Blood Pressure 106/69 Blood Pressure 106/66 [Right] O2 Sat by Pulse 97 94 Oximetry 11/13/21 11/13/21 11/13/21 08:50 09:01 09:15 Temperature Pulse Rate 78 84 Respiratory 21 13 Rate Blood Pressure 109/69 109/69 Blood Pressure [Right] O2 Sat by Pulse 98 98 99 Oximetry 11/13/21 11/13/21 11/13/21 09:31 09:45 10:01 Temperature Pulse Rate 79 74 75 Respiratory 12 12 11 L Rate Blood Pressure 111/65 111/65 114/68 Blood Pressure [Right] O2 Sat by Pulse 98 97 100 Oximetry 11/13/21 11/13/21 11/13/21 10:15 10:31 10:45 Temperature Pulse Rate 79 73 71 Respiratory 27 H 19 21 Rate Blood Pressure 114/68 119/73 119/73 Blood Pressure [Right] O2 Sat by Pulse 99 100 99 Oximetry 11/13/21 11/13/21 11/13/21 11:01 11:15 11:31 Temperature Pulse Rate 68 74 108 H Respiratory 13 13 19 Rate Blood Pressure 115/71 115/71 110/70 Blood Pressure [Right] O2 Sat by Pulse 99 98 97 Oximetry 11/13/21 11/13/21 11/13/21 11:45 12:01 12:15 Temperature Pulse Rate 100 H 92 H 101 H Respiratory 22 16 24 Rate Blood Pressure 110/70 111/52 111/52 Blood Pressure [Right] O2 Sat by Pulse 97 97 99 Oximetry 11/13/21 12:31 Temperature Pulse Rate 77 Respiratory 18 Rate Blood Pressure 93/53 Blood Pressure [Right] O2 Sat by Pulse 98 Oximetry ED Medical Decision Making - Lab Data Result diagrams: 11/13/21 Unknown 11/13/21 Unknown - EKG Data EKG shows normal: sinus rhythm Rate: normal (93) No standard instances P Waves: LAE - Radiology Data Radiology results: report reviewed Patient: ROSALES UGALDE MR#: [id number] : 2000 Acct:[id number] Age/Sex: 21 / F ADM Date: 11/13/21 Loc: ED Attending Dr: Ordering Physician: CHAZ GUZMAN Date of Service: 11/13/21 Procedure(s): XR chest 1V ap Accession Number(s): [id number] cc: CHAZ GUZMAN Fluoro Time In Minutes: CHEST 1 VIEW 11/13/2021 10:54 AM INDICATION / CLINICAL INFORMATION: Chest pain. COMPARISON: 09/20/2021 FINDINGS: SUPPORT DEVICES: None. HEART / MEDIASTINUM: No significant abnormality. LUNGS / PLEURA: No significant pulmonary or pleural abnormality. No pneumothorax. ADDITIONAL FINDINGS: No significant additional findings. IMPRESSION: 1. No acute findings. Signer Name: Cameron Proctor MD Signed: 11/13/2021 11:57 AM Workstation Name: [email or web address] Transcribed By: SOBEIDA Dictated By: Cameron Proctor MD Electronically Authenticated By: Cameron Proctor MD Signed Date/Time: 11/13/211156 DD/ 56 TD/TT: - Medical Decision Making 1232: Patient currently resting comfortably in the bed watching a movie on her phone. She does not appear to be any significant distress. She is not in any pain or respiratory distress. She has a nonsurgical abdominal exam. She is neurologically intact. All labs reviewed with no acute changes on labs today. Her Retic count is within normal limits. Chest x-ray shows nothing acute. EKG was normal. D- dimer was also negative. Heart score is 0. Her vital signs have been stable. Patient has already received 4 of morphine, 1 of Dilaudid and 12.5 with Benadryl. She states that her pain is down to a 7, still requesting additional dose of pain medications. Discussed all work-up results with patient. At this time there is no indication for admission to the hospital. Also at this time I do not see indication for additional pain medication. She has her morphine ER as all but she is out of her oxycodone. Recommend that she follows up with her box covering machine operator next week for refill. I will give her prescription for Phenergan to help her nausea. I also recommended that she get an outpatient COVID-19 test. Increase her water intake. Patient expressed understanding. Patient was stable at time of discharge Critical care attestation.: If time is entered above; I have spent that time in minutes in the direct care of this critically ill patient, excluding procedure time. ED Disposition Clinical Impression: Sickle-cell disease with pain, Nonspecific chest pain, Upper abdominal pain Disposition: 01 HOME / SELF CARE / HOMELESS Is pt being admited?: No Does the pt Need Aspirin: No Condition: Stable Instructions: Sickle Cell Anemia, Pediatric, Nonspecific Chest Pain, Adult, Abdominal Pain, Adult, [id number] Additional Instructions: I recommend that you follow-up with your box covering machine operator next week and also for refill on her oxycodone. Continue to take your morphine prescription as prescribed. Take the Phenergan to help with nausea or vomiting. You can take [id number] cough medications to help your cough. You should get a COVID-19 test if you have not had one. Increase your water intake. Return to the ER if your symptoms worsens in any way. Prescriptions: Promethazine [Phenergan] 25 mg PO Q6HR PRN #15 tab PRN Reason: Nausea Referrals: PRIMARY CARE, [Primary Care Provider] - 3-5 Days Forms: Work/School Release Form(ED) Time of Disposition: 12:17 Heart Score - HEART Score History: Slightly suspicious EKG: Normal Age: < 45 Risk factors: No known risk factors Troponin: < normal limit HEART Score: 0 - EKG Read Time Time EKG Completed: 08:06 EKG Read Time: 08:08 - Critical Actions Critical Actions: 0-3 pts:0.9-1.7%risk of adverse cardiac event.Candidate for discharge
[2021-11-13 08:41] LABS: Bilirubin,Urine NEG (Negative); Blood,Urine NEG (Negative); Color,Urine Yellow (Yellow); Mucus,Urine FEW /HPF; Protein,Urine <15 mg/dL mg/dL (Negative); Urobilinogen,Urine < 2.0 mg/dL (<2.0)
[2021-11-13 10:45] LABS: Basophils % (Auto) 0.2 % (0.0-1.8); Eosinophils % (Auto) 0.4 % (0.0-4.3); Hematocrit 34.1 % (30.3-42.9); Hemoglobin 11.5 gm/dl (10.1-14.3); Lymphocytes % (Auto) 30.4 % (13.4-35.0); Mean Corpuscular HGB Conc 34 % (30-34); Monocytes # (Auto) 0.3 K/mm3 (0.0-0.8); Monocytes % (Auto) 4.2 % (0.0-7.3); Platelet Count 245 K/mm3 (140-440); Red Blood Count 5.38 M/mm3 (3.65-5.03); Red Cell Distribution Width 13.9 % (13.2-15.2)
[2021-11-13 11:04] LABS: Alanine Aminotransferase 5 units/L (7-56); Blood Urea Nitrogen 8 mg/dL (7-17); Calcium 8.7 mg/dL (8.4-10.2); Hemolysis Index 3
[2021-11-13 11:06] LABS: BUN/Creatinine Ratio 11
[2021-11-13 11:07] LABS: Mean Corpuscular Volume 63 fl (79-97)
[2021-11-13] MEDS ORDERED: HYDROmorphone 1 MG/1 ML INJ IV ONE (11:09)
[2021-11-13] MEDS ORDERED: diphenhydrAMINE 50 MG/ML VIAL IV ONE (11:09)
--- NOTE | 2021-11-13 12:01 | XRay Report ---
CHEST 1 VIEW 11/13/2021 10:54 AM INDICATION / CLINICAL INFORMATION: Chest pain. COMPARISON: 09/20/2021 FINDINGS: SUPPORT DEVICES: None. HEART / MEDIASTINUM: No significant abnormality. LUNGS / PLEURA: No significant pulmonary or pleural abnormality. No pneumothorax. ADDITIONAL FINDINGS: No significant additional findings. IMPRESSION: 1. No acute findings. Signer Name: Cameron Proctor MD Signed: 11/13/2021 11:57 AM Workstation Name: [email or web address]
[2021-11-13 12:22] LABS: Bacteria,Urine 1+ /HPF (Negative)
[2021-11-13 12:39] VITALS: BP 93/53
--- NOTE | 2021-11-13 14:43 | Electrocardiograph Report ---
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
== END 2021-11-13 13:06 | disposition home or self-care (01) ==
LOC: ED 07:15
DX: D57.00 Hb-SS disease with crisis, unspecified (principal); R07.89 Other chest pain; R10.12 Left upper quadrant pain; Z88.1 Allergy status to other antibiotic agents; Z91.018 Allergy to other foods; Z79.899 Other long term (current) drug therapy
CPT/HCPCS: 36415; 71045; 80053; 81001; 84484; 84703; 85025; 85045; 85379; 93005; 93010; 96361; 96374; 96375; 99284; J1170; J1200; J2270; J2405; J7030; Q0162

== ENCOUNTER 2021-12-14 14:43 | Emergency (ER) | payer MEDICAID ==
[2021-12-14 17:58] LABS: Bilirubin,Urine NEG (Negative); Blood,Urine NEG (Negative); Color,Urine Yellow (Yellow); Mucus,Urine FEW /HPF; Protein,Urine <15 mg/dL mg/dL (Negative); Urobilinogen,Urine < 2.0 mg/dL (<2.0); WBC,Urine < 1.0 /HPF (0.0-6.0)
[2021-12-14] MEDS ORDERED: KETOROLAC 30 MG/1 ML INJ IV ONE (18:10)
[2021-12-14] MEDS ORDERED: SODIUM CHLORIDE 0.9% 1000 ML 1,000 ML IV ONE (18:10)
[2021-12-14] MEDS ORDERED: ONDANSETRON 4 MG/2 ML INJ IV ONE (18:10)
[2021-12-14 19:03] LABS: Basophils % (Auto) 0.3 % (0.0-1.8); Eosinophils % (Auto) 0.4 % (0.0-4.3); Hematocrit 35.2 % (30.3-42.9); Hemoglobin 12.2 gm/dl (10.1-14.3); Lymphocytes # (Auto) 2.9 K/mm3 (1.2-5.4); Mean Corpuscular HGB Conc 35 % (30-34); Monocytes # (Auto) 0.4 K/mm3 (0.0-0.8); Monocytes % (Auto) 5.6 % (0.0-7.3); Platelet Count 261 K/mm3 (140-440); Red Blood Count 5.55 M/mm3 (3.65-5.03); Red Cell Distribution Width 15.1 % (13.2-15.2)
[2021-12-14 19:09] LABS: Mean Corpuscular Volume 63 fl (79-97)
[2021-12-14 19:25] LABS: Alanine Aminotransferase 6 units/L (7-56); Albumin 4.7 g/dL (3.9-5); Blood Urea Nitrogen 8 mg/dL (7-17); Calcium 9.5 mg/dL (8.4-10.2); Hemolysis Index 8
[2021-12-14 19:33] LABS: BUN/Creatinine Ratio 11
[2021-12-14 20:27] LABS: C-Reactive Protein < 0.30 mg/dL (0.00-1.30)
--- NOTE | 2021-12-14 22:01 | Emergency Department Report ---
ED General Adult HPI - General Chief complaint: Sickle Cell Crisis Stated complaint: SICKLE CELL PAIN Time Seen by Provider: 12/14/21 18:02 Source: patient Mode of arrival: Ambulatory Limitations: No Limitations - History of Present Illness Initial comments: back and pelvic pain -: Gradual, days(s) Location: pelvis Radiation: non-radiation Severity scale (0 -10): 9 Quality: aching Consistency: constant Improves with: none Treatments Prior to Arrival: none - Related Data Home Medications Medication Instructions Recorded Confirmed Last Taken Cholecalciferol Vit D3 [Vitamin D3 1,000 1000units PO 1XW 09/18/21 09/18/21 09/11/21 08:00 1,000 UNIT TAB] Fluticasone [Flonase] 1 spray NS QDAY 09/18/21 09/18/21 09/17/21 08:00 Folic Acid [Folvite] 1 mg PO QDAY 09/18/21 09/18/21 09/18/21 08:00 Gabapentin [Neurontin] 600 mg PO TID 09/18/21 09/18/21 09/17/21 21:00 Glutamine [Endari] 10 g PO BID 09/18/21 09/18/21 09/17/21 21:00 Loratadine [Allergy Relief] 10 mg PO DAILY 09/18/21 09/18/21 09/17/21 08:00 Morphine Sulfate [Morphine Sulfate 15 mg PO BID 09/18/21 09/18/21 09/17/21 21:00 ER] Previous Rx's Medication Instructions Recorded Last Taken Type Promethazine [Phenergan] 25 mg PO Q6HR PRN #15 tab 11/13/21 Unknown Rx Allergies Allergy/AdvReac Type Severity Reaction Status Date / Time ceftriaxone [From Rocephin] Allergy Swelling Verified 12/14/21 17:06 Pork/Porcine Containing Allergy Anaphylaxis Verified 12/14/21 17:06 Products ED Review of Systems ROS: Stated complaint: SICKLE CELL PAIN Other details as noted in HPI Constitutional: denies: chills, fever Eyes: denies: eye pain, eye discharge, vision change ENT: denies: ear pain, throat pain Respiratory: denies: cough, shortness of breath, wheezing Cardiovascular: denies: chest pain, palpitations Endocrine: no symptoms reported Gastrointestinal: denies: abdominal pain, nausea, diarrhea Genitourinary: denies: urgency, dysuria, discharge Musculoskeletal: denies: back pain, joint swelling, arthralgia Skin: denies: rash, lesions Neurological: denies: headache, weakness, paresthesias Psychiatric: denies: anxiety, depression Hematological/Lymphatic: denies: easy bleeding, easy bruising ED Past Medical Hx - Past Medical History Previous Medical History?: Yes Hx Hypertension: No Hx CVA: No Hx Sickle Cell Disease: Yes - Social History Smoking Status: Never Smoker Substance Use Type: None - Medications Home Medications: Home Medications Medication Instructions Recorded Confirmed Last Taken Type Cholecalciferol Vit D3 [Vitamin D3 1,000 1000units PO 1XW 09/18/21 09/18/21 09/11/21 08:00 History 1,000 UNIT TAB] Fluticasone [Flonase] 1 spray NS QDAY 09/18/21 09/18/21 09/17/21 08:00 History Folic Acid [Folvite] 1 mg PO QDAY 09/18/21 09/18/21 09/18/21 08:00 History Gabapentin [Neurontin] 600 mg PO TID 09/18/21 09/18/21 09/17/21 21:00 History Glutamine [Endari] 10 g PO BID 09/18/21 09/18/21 09/17/21 21:00 History Loratadine [Allergy Relief] 10 mg PO DAILY 09/18/21 09/18/21 09/17/21 08:00 History Morphine Sulfate [Morphine Sulfate 15 mg PO BID 09/18/21 09/18/21 09/17/21 21:00 History ER] Promethazine [Phenergan] 25 mg PO Q6HR PRN #15 tab 11/13/21 Unknown Rx ED Physical Exam - General Limitations: No Limitations General appearance: alert, in no apparent distress - Head Head exam: Present: atraumatic, normocephalic - Eye Eye exam: Present: normal appearance - ENT ENT exam: Present: mucous membranes moist - Neck Neck exam: Present: normal inspection - Respiratory Respiratory exam: Present: normal lung sounds bilaterally. Absent: respiratory distress - Cardiovascular Cardiovascular Exam: Present: regular rate, normal rhythm. Absent: systolic murmur, diastolic murmur, rubs, gallop - GI/Abdominal GI/Abdominal exam: Present: soft, normal bowel sounds - Extremities Exam Extremities exam: Present: normal inspection - Back Exam Back exam: Present: normal inspection - Neurological Exam Neurological exam: Present: alert, oriented X3 - Psychiatric Psychiatric exam: Present: normal affect, normal mood - Skin Skin exam: Present: warm, dry, intact, normal color. Absent: rash ED Course Vital Signs 12/14/21 12/14/21 17:04 18:32 Temperature 98.7 F Pulse Rate 76 Respiratory 14 18 Rate Blood Pressure 120/70 O2 Sat by Pulse 100 Oximetry - Reevaluation(s) Reevaluation #1: 12/14/21 21:59 vss no distress, not spetic, h.h stable pain meds given ED Medical Decision Making - Lab Data Result diagrams: 12/14/21 18:40 12/14/21 18:40 Critical care attestation.: If time is entered above; I have spent that time in minutes in the direct care of this critically ill patient, excluding procedure time. ED Disposition Clinical Impression: Sickle cell pain crisis Disposition: 01 HOME / SELF CARE / HOMELESS Is pt being admited?: No Does the pt Need Aspirin: No Condition: Stable
[2021-12-14] MEDS ORDERED: HYDROcodone/ACETAMINOPHEN 5-325 MG TAB PO ONE (22:40)
[2021-12-14 23:10] VITALS: BP 134/68
== END 2021-12-14 23:10 | disposition home or self-care (01) ==
LOC: ED 14:43
DX: D57.219 Sickle-cell/Hb-C disease with crisis, unspecified (principal); Z91.018 Allergy to other foods; Z88.1 Allergy status to other antibiotic agents
CPT/HCPCS: 36415; 80053; 81001; 85025; 85045; 86140; 96361; 96374; 96375; 99283; J1885; J2405; J7030; Q0162